=== PATIENT | female | born 1945 | race Caucasian/White ===

== ENCOUNTER → 2024-05-23 | Outpatient (CLI) | payer MEDICARE ==
--- NOTE | 2024-05-23 08:51 | MR ---
EXAMINATION TYPE: MR brain wo/w con DATE OF EXAM: 05/23/2024 COMPARISON: NONE HISTORY: Tremors TECHNIQUE: Multiplanar, multisequence images of the brain and brainstem is performed without and with IV contras t, utilizing 10 mL intravenous Gadobutrol . FINDINGS: Diffusion weighted images demonstrate no evidence of a recent infarct or other diffusion ab normality. There is mild to moderate ventricular and sulcal prominence. There are multifocal areas o f T2 hyperintensity scattered to the superficial, deep, and periventricular white matter. Approximate ly 40 scattered lesions are seen. Lesions are nonspecific in appearance and distribution. Midline structures demonstrate normal morphology. The craniocervical junction appears within normal limits. Post contrast images demonstrate no abnormal enhancement or enhancing mass. Hyperostosis fro ntalis is present. The dural venous sinuses appear patent. Bilateral aphakia is seen. Mild mucosal th ickening involving ethmoid sinuses bilaterally. Nasal septum is deviated from the midline anteriorly. IMPRESSION: There is mild to moderate diffuse cerebral atrophy and probable chronic small vessel isch emic change. No suspicious enhancing masses. [facility], , 05/23/2024 8:48 AM
== END | disposition home or self-care (01) ==
LOC: RADMRIMAIN 07:11
PROVIDERS: ATTEND Family Medicine
DX: G31.9 Degenerative disease of nervous system, unspecified (principal); R25.1 Tremor, unspecified
CPT/HCPCS: 70553; A9585